=== PATIENT | male | born 1950 | race Caucasian/White ===

== ENCOUNTER 2021-01-12 05:56 | Inpatient (IN) ==
[2021-01-04 11:12] LABS: Hematocrit 40.2 VOL% (42.0-52.0); Hemoglobin 13.3 GM/DL (14.0-18.0); Mean Corpuscular HGB Conc 33.1 GM/DL (32-36); Mean Corpuscular Volume 90.7 FL (87-102); Red Blood Count 4.43 MC/CUMM (3.8-5.5); Red Cell Distribution Width 13.2 % (9.3-17.3); White Blood Count 6.6 T/CUMM (4-12)
[2021-01-04 11:13] LABS: Basophils % 0.3 % (0.0-0.8); Eosinophils # 0.2 10*3/uL (0.0-0.87); Eosinophils % 2.3 % (0.00-10.9); Immature Granulocytes % 0.3 %; Immature Granulocytes Absolute 0.02 #; Lymphocytes # 1.9 10*3/uL (1.4-4.0); Lymphocytes % 28.1 % (21.2-54.2); Mean Platelet Volume 11.1 FL (9.6-12.0); Monocytes % 10.1 % (1.7-12.7); Neutrophils % 58.9 % (38.7-73.9); Platelet Count 182 T/CUMM (130-400)
[2021-01-04 11:25] LABS: Albumin 3.5 G/DL (3.4-5.0); Bilirubin,Total 0.4 MG/DL (0.20-1.00); Calcium 8.7 MG/DL (8.5-10.1); Osmolality,Calculated 291.1 MOS/KG (273-304); Potassium 4.9 MMOL/L (3.5-5.1); Total Protein 6.7 G/DL (6.4-8.2)
[2021-01-12] MEDS ORDERED: cefTRIAXone 1,000 MG in SODIUM CHLORIDE 0.9% 100 ML IV ONE ×2 (06:00→16:00)
[2021-01-12] MEDS ORDERED: ROCURONIUM 50 MG/5 ML VIAL IV ONE ×3 (06:49→08:36)
[2021-01-12] MEDS ORDERED: ONDANSETRON 4 MG/2 ML VIAL ONE (06:49)
[2021-01-12] MEDS ORDERED: propofoL 200 MG/20 ML VIAL IV ONE (06:49)
[2021-01-12] MEDS ORDERED: MIDAZOLAM 2 MG/2 ML VIAL ONE (06:49)
[2021-01-12] MEDS ORDERED: fentaNYL 100 MCG/2 ML VIAL ONE ×3 (06:49→08:54)
[2021-01-12] MEDS ORDERED: LIDOCAINE 2% 5 ML VIAL ONE (06:49)
[2021-01-12] MEDS ORDERED: DEXAMETHASONE 4 MG/1 ML VIAL ONE (06:54)
[2021-01-12] MEDS ORDERED: BUPIVACAINE 0.5% 50 ML VIAL ONE (06:54)
[2021-01-12] MEDS ORDERED: FAMOTIDINE 20 MG TABLET ONE (07:26)
[2021-01-12] MEDS ORDERED: FAMOTIDINE 20 MG TABLET PO ONE (07:30)
[2021-01-12] MEDS ORDERED: LACTATED RINGERS 1,000 ML IV SCH (07:30)
[2021-01-12] MEDS ORDERED: ROPIVACAINE 0.5% 30 ML VIAL ONE (08:22)
[2021-01-12] MEDS ORDERED: ePHEDrine 50 MG/ML VIAL ONE (08:34)
[2021-01-12] MEDS ORDERED: LACTATED RINGERS 1,000 ML IV ONE ×2 (09:00→11:11)
[2021-01-12] MEDS ORDERED: ACETAMINOPHEN INJ 1,000 MG/100 ML VIAL IV ONE (09:00)
[2021-01-12] MEDS ORDERED: SEVOFLURANE 1 UNIT/15 MINUTE INH ONE ×8 (09:01→11:43)
[2021-01-12] MEDS ORDERED: PHENYLEPHRINE 1 MG/10 ML SYRINGE IV ONE (11:11)
[2021-01-12] MEDS ORDERED: GLYCOPYRROLATE 0.4 MG/2 ML VIAL ONE (11:12)
[2021-01-12] MEDS ORDERED: NEOSTIGMINE 10 MG/10 ML VIAL ONE (11:12)
[2021-01-12] MEDS ORDERED: ONDANSETRON 4 MG/2 ML VIAL IV PRN ×2 (11:32→12:24)
[2021-01-12] MEDS ORDERED: PROMETHAZINE 25 MG/1 ML VIAL IM PRN (11:32)
[2021-01-12] MEDS ORDERED: HYDROmorphone 2 MG/1 ML VIAL IV PRN (11:32)
[2021-01-12] MEDS ORDERED: SIMETHICONE CHEW 80 MG TABLET PO PRN (11:36)
[2021-01-12] MEDS ORDERED: DEXTROSE 50% 25 GM/50 ML VIAL IV PRN ×2 (11:41→11:45)
[2021-01-12] MEDS ORDERED: GLUCAGON 1 MG VIAL IM PRN ×2 (11:41→11:45)
[2021-01-12] MEDS ORDERED: diphenhydrAMINE 50 MG/1 ML VIAL IV PRN (11:49)
[2021-01-12] MEDS ORDERED: CALCIUM CARBONATE CHEW 500 MG TABLET PO PRN (11:49)
[2021-01-12] MEDS: HYDROmorphone 2 MG/1 ML VIAL IV PRN ×2 (12:25→12:35)
[2021-01-12 12:44] LABS: Bilirubin,Urine Negative (Negative); Blood, Urine Negative (Negative); Glucose,Urine (UA) 50 mg/dL (Negative); Ketones,Urine Negative (Negative); Mucus,Urine Occasional /LPF (Occasional); Nitrite,Urine Negative (Negative); Protein,Urine Negative; RBC,Urine 1 /HPF (0-4); Squamous Epithelial Cell,Urine Occasional /HPF (0-10); Urine Appearance Slightly Hazy (Clear); Urine Color Straw (Yellow); Urine Specific Gravity 1.005 (1.001-1.035); Urine Urobilinogen < 2.0 EU/DL (0.2-1.0)
[2021-01-12] MEDS: ACETAMINOPHEN 325 MG TABLET PO SCH ×2 (13:10→18:48)
[2021-01-12 14:13] LABS: Basophils % 0.1 % (0.0-0.8); Eosinophils % 0.1 % (0.00-10.9); Hematocrit 37.7 VOL% (42.0-52.0); Hemoglobin 12.2 GM/DL (14.0-18.0); Immature Granulocytes % 0.8 %; Immature Granulocytes Absolute 0.09 #; Lymphocytes # 1.5 10*3/uL (1.4-4.0); Lymphocytes % 13.5 % (21.2-54.2); Mean Corpuscular HGB Conc 32.4 GM/DL (32-36); Mean Corpuscular Volume 92.2 FL (87-102); Mean Platelet Volume 10.5 FL (9.6-12.0); Monocytes % 5.3 % (1.7-12.7); Neutrophils % 80.2 % (38.7-73.9); Platelet Count 130 T/CUMM (130-400); Red Blood Count 4.09 MC/CUMM (3.8-5.5); Red Cell Distribution Width 13.1 % (9.3-17.3); White Blood Count 10.9 T/CUMM (4-12)
[2021-01-12 14:20] LABS: Calcium 8.5 MG/DL (8.5-10.1); Osmolality,Calculated 287.7 MOS/KG (273-304); Potassium 4.5 MMOL/L (3.5-5.1)
[2021-01-12] MEDS: SODIUM CHLORIDE 0.9% 1,000 ML IV SCH (15:57)
[2021-01-12] MEDS: oxyCODONE/ACETAMINOPHEN 5-325 MG TABLET PO PRN ×2 (16:42→20:45)
[2021-01-12] MEDS: INSULIN LISPRO 100 UNIT/ML SUBCUT SCH (16:54)
[2021-01-12] MEDS: GABAPENTIN 300 MG CAPSULE PO SCH (20:43)
[2021-01-12] MEDS: carvediloL 3.125 MG TABLET PO SCH (20:44)
[2021-01-12] MEDS: ALVIMOPAN 12 MG CAPSULE PO SCH (20:45)
[2021-01-12] MEDS: ATORVASTATIN 40 MG TABLET PO SCH (20:45)
[2021-01-12] MEDS: FOLIC ACID 1 MG TABLET PO SCH (20:46)
[2021-01-12] MEDS: CYCLOBENZAPRINE 10 MG TABLET PO SCH (20:51)
[2021-01-12] MEDS: DORZOLAMIDE/TIMOLOL OPH SOLN 10 ML BOTTLE LEFT EYE SCH (20:51)
[2021-01-12] MEDS ORDERED: INSULIN GLARGINE 100 UNIT/ML SUBCUT SCH (21:00)
[2021-01-12] MEDS ORDERED: ENALAPRIL 20 MG TABLET PO SCH (21:00)
[2021-01-13] MEDS: ACETAMINOPHEN 325 MG TABLET PO SCH ×4 (00:50→18:00)
[2021-01-13] MEDS: oxyCODONE/ACETAMINOPHEN 5-325 MG TABLET PO PRN ×2 (01:44→09:46)
[2021-01-13] MEDS: SODIUM CHLORIDE 0.9% 1,000 ML IV SCH (01:45)
[2021-01-13 05:39] LABS: Basophils % 0.1 % (0.0-0.8); Eosinophils % 0.3 % (0.00-10.9); Hematocrit 35.1 VOL% (42.0-52.0); Hemoglobin 11.4 GM/DL (14.0-18.0); Immature Granulocytes % 0.4 %; Immature Granulocytes Absolute 0.03 #; Lymphocytes # 1.3 10*3/uL (1.4-4.0); Lymphocytes % 17.3 % (21.2-54.2); Mean Corpuscular HGB Conc 32.5 GM/DL (32-36); Mean Corpuscular Volume 92.9 FL (87-102); Mean Platelet Volume 10.8 FL (9.6-12.0); Monocytes % 9.5 % (1.7-12.7); Neutrophils % 72.4 % (38.7-73.9); Platelet Count 131 T/CUMM (130-400); Red Blood Count 3.78 MC/CUMM (3.8-5.5); Red Cell Distribution Width 13.2 % (9.3-17.3); White Blood Count 7.6 T/CUMM (4-12)
[2021-01-13 05:51] LABS: Calcium 7.8 MG/DL (8.5-10.1); Osmolality,Calculated 283.8 MOS/KG (273-304); Potassium 4.6 MMOL/L (3.5-5.1)
[2021-01-13 05:54] LABS: Alanine Aminotransferase 20 U/L (16-61); Albumin 2.6 G/DL (3.4-5.0); Alkaline Phosphatase 68 U/L (45-117); Aspartate Amino Transferase 19 U/L (0-37); Bilirubin,Direct < 0.100 MG/DL (0.0-0.20); Bilirubin,Indirect 1.6 MG/DL (0.0-1.0); Total Protein 5.7 G/DL (6.4-8.2)
[2021-01-13 05:56] LABS: Risk Ratio 3.14; VLDL Cholesterol 24.8 MG/DL
[2021-01-13] MEDS ORDERED: MAGNESIUM SULF RIDER 2 GM/50 ML PREMIX IV PRN (08:38)
[2021-01-13] MEDS ORDERED: MAGNESIUM SULF RIDER 4 GM/100 ML PREMIX IV PRN (08:38)
[2021-01-13] MEDS: INSULIN LISPRO 100 UNIT/ML SUBCUT SCH ×2 (09:34→17:59)
[2021-01-13] MEDS: GABAPENTIN 300 MG CAPSULE PO SCH ×2 (09:35→21:35)
[2021-01-13] MEDS: CITALOPRAM 20 MG TABLET PO SCH (09:36)
[2021-01-13] MEDS: carvediloL 3.125 MG TABLET PO SCH ×2 (09:36→21:46)
[2021-01-13] MEDS: FOLIC ACID 1 MG TABLET PO SCH ×2 (09:36→21:35)
[2021-01-13] MEDS: ALVIMOPAN 12 MG CAPSULE PO SCH ×2 (09:36→21:35)
[2021-01-13] MEDS: DORZOLAMIDE/TIMOLOL OPH SOLN 10 ML BOTTLE LEFT EYE SCH (09:37)
[2021-01-13] MEDS: amLODIPine 10 MG TABLET PO SCH (09:47)
[2021-01-13] MEDS ORDERED: BISACODYL 10 MG SUPP RECTAL PRN (10:48)
[2021-01-13] MEDS ORDERED: GLUCAGON 1 MG VIAL IM PRN (12:31)
[2021-01-13] MEDS ORDERED: DEXTROSE 50% 25 GM/50 ML VIAL IV PRN (12:31)
[2021-01-13] MEDS ORDERED: INSULIN GLARGINE 100 UNIT/ML SUBCUT SCH (21:00)
[2021-01-13] MEDS: ATORVASTATIN 40 MG TABLET PO SCH (21:35)
[2021-01-13] MEDS: DOCUSATE SODIUM 100 MG CAPSULE PO SCH (21:35)
[2021-01-13] MEDS: POLYETHYLENE GLYCOL POWDER 17 GM PACK PO SCH (21:35)
[2021-01-13] MEDS: CYCLOBENZAPRINE 10 MG TABLET PO SCH (21:36)
[2021-01-13] MEDS: LUBIPROSTONE 8 MCG CAPSULE PO SCH (21:36)
[2021-01-14] MEDS: ACETAMINOPHEN 325 MG TABLET PO SCH ×3 (01:18→12:57)
[2021-01-14 05:38] LABS: Basophils % 0.1 % (0.0-0.8); Eosinophils # 0.1 10*3/uL (0.0-0.87); Eosinophils % 1.4 % (0.00-10.9); Hematocrit 34.2 VOL% (42.0-52.0); Hemoglobin 11.1 GM/DL (14.0-18.0); Immature Granulocytes Absolute 0.07 #; Lymphocytes # 1.3 10*3/uL (1.4-4.0); Lymphocytes % 17.8 % (21.2-54.2); Mean Corpuscular HGB Conc 32.5 GM/DL (32-36); Mean Corpuscular Volume 92.9 FL (87-102); Mean Platelet Volume 10.8 FL (9.6-12.0); Monocytes % 12.3 % (1.7-12.7); Neutrophils % 67.4 % (38.7-73.9); Platelet Count 139 T/CUMM (130-400); Red Blood Count 3.68 MC/CUMM (3.8-5.5); Red Cell Distribution Width 13.2 % (9.3-17.3); White Blood Count 7.3 T/CUMM (4-12)
[2021-01-14 07:12] LABS: Osmolality,Calculated 280.2 MOS/KG (273-304); Potassium 3.9 MMOL/L (3.5-5.1)
[2021-01-14] MEDS: INSULIN LISPRO 100 UNIT/ML SUBCUT SCH (08:39)
[2021-01-14] MEDS: ALVIMOPAN 12 MG CAPSULE PO SCH (08:40)
[2021-01-14] MEDS: GABAPENTIN 300 MG CAPSULE PO SCH (08:40)
[2021-01-14] MEDS: amLODIPine 10 MG TABLET PO SCH (08:40)
[2021-01-14] MEDS: DOCUSATE SODIUM 100 MG CAPSULE PO SCH (08:40)
[2021-01-14] MEDS: carvediloL 3.125 MG TABLET PO SCH (08:40)
[2021-01-14] MEDS: CITALOPRAM 20 MG TABLET PO SCH (08:40)
[2021-01-14] MEDS: LUBIPROSTONE 8 MCG CAPSULE PO SCH (08:40)
[2021-01-14] MEDS: FOLIC ACID 1 MG TABLET PO SCH (08:40)
[2021-01-14] MEDS: POLYETHYLENE GLYCOL POWDER 17 GM PACK PO SCH (08:41)
[2021-01-14] MEDS ORDERED: BISACODYL 10 MG SUPP RECTAL ONE (09:50)
[2021-01-14 12:05] VITALS: BP 157/54
[2021-01-14] MEDS ORDERED: INSULIN GLARGINE 100 UNIT/ML SUBCUT SCH (21:00)
== END 2021-01-14 13:30 | disposition home or self-care (01) | DRG 657 ==
LOC: N.OR 05:56 → N.SDSINP 06:00 → N.4E 11:32
PROVIDERS: ADMIT Surgery; ATTEND Surgery